=== PATIENT | female | born 1970 | race Caucasian/White ===

== ENCOUNTER 2023-01-10 10:16 | Emergency (ER) | payer MEDICAID ==
[~2023-01-10] VITALS: Ht 154.9 cm; Wt 73.6 kg
[2023-01-10 10:26] VITALS: BP 137/94; PULSE 80; RESP 18; TEMP 97.1; O2SAT 99
[2023-01-10 10:50] LABS: STREP A SCREEN NEGATIVE (Neg)
== END 2023-01-10 15:31 | disposition left against medical advice (07) ==
LOC: ER 10:17
DX: J02.9 Acute pharyngitis, unspecified (principal); Z53.21 Procedure and treatment not carried out due to patient leaving prior to being seen by health care provider
CPT/HCPCS: 87081; 87880; 99281